=== PATIENT | female | born 1955 | race Caucasian/White ===

== ENCOUNTER → 2018-03-12 | Outpatient (CLI) | payer OTHER ==
--- NOTE | 2018-03-15 02:57 | MAM ---
EXAM DESCRIPTION: 3D Screening BILATERAL : Digital Mammography. CLINICAL HISTORY: 62 years Female SCREENING . No complaints. Remote family history of breast cancer. Postmenopausal. Has taken HRT more than 5 years ago.. COMPARISON: Baseline study at this facility.. No prior reports available. TECHNIQUE: Bilateral CC and MLO projection full-field images, 3-D tomosynthesis digital mammographic technique. Also bilateral synthesized CC/ MLO full-field images. CAD not utilized. FINDINGS: The breast parenchymal density pattern is: Heterogeneously dense breast tissue, which may obscure small masses. No skin thickening or nipple retraction bilateral vascular calcifications. Bilateral solitary microcalcifications. Focal asymmetry at the 1200 clock position of the posterior third of the left breast near the chest wall with minimal calcification. Elongated mass or architectural distortion at the 430 clock position of the right breast approximately 3 cm from the nipple. Not associated with calcifications. IMPRESSION: BI-RADS CATEGORY: 0 - INCOMPLETE- Need additional imaging evaluation. FOLLOW-UP: Recall for additional imaging: Bilateral 3-D tomosynthesis diagnostic full field LM images. Bilateral targeted breast ultrasound to follow if indicated by diagnostic images.. Written communication concerning the IMPRESSION and Follow-up, will be mailed to the patient and referring health care provider. Electronically signed by: Sahil Shi MD 03/14/2018 2:19 PM CDT
== END ==
LOC: MAMMO 07:48
PROVIDERS: ATTEND Family Medicine
DX: Z12.31 Encounter for screening mammogram for malignant neoplasm of breast (principal)

== ENCOUNTER → 2018-04-16 | Outpatient (CLI) | payer OTHER ==
--- NOTE | 2018-04-16 17:20 | US ---
EXAM DESCRIPTION: Breast,Left: Ultrasound CLINICAL HISTORY: 62 yearsFemaleABNORMAL MAMMO COMPARISON: Digital diagnostic 3-D tomosynthesis bilateral breasts on this visit. TECHNIQUE: Transcutaneous scanning of the left breast utilizing two-dimensional and Doppler modes. Scanning performed by the stockroom attendant and Dr. Shi. FINDINGS: Scanning of the 1100-100 clock position of the left breast from the chest wall to the nipple. Mostly fibroglandular echotexture. No distinct solid mass or cyst. No parenchymal edema or large calcifications. Normal Doppler vascularity. No unusual skin changes. IMPRESSION: 1. Bi-Rads Category 2: Benign. 2. Please refer to bilateral diagnostic 3-D tomosynthesis mammography examination and report on this visit. The FINDINGS and the FOLLOW-UP plan were reviewed in person with the patient after the examination. Written communication explaining the IMPRESSION and FOLLOW-UP will be mailed to the patient and referring care provider. Electronically signed by: Sahil Shi MD 04/16/2018 5:18 PM CDT
--- NOTE | 2018-04-16 17:20 | MAM ---
EXAM DESCRIPTION: 3D Diagnostic, Bilateral: Digital Mammography CLINICAL HISTORY: 62 yearsFemaleABNORMAL MAMMO . Focal asymmetry at the 1200 clock position of the posterior third of the left breast and lower inner quadrant of the anterior right breast.. COMPARISON: 3-D digital screening bilateral study 03/12/2018. 2-D digital screening bilateral study 09/21/2016 from outside imaging facility.. Targeted left breast ultrasound following this examination. Reports from prior examinations also reviewed. TECHNIQUE: Bilateral LM projection full-field images, 3-D tomosynthesis digital mammographic technique. CAD not utilized. FINDINGS: The breast parenchymal density pattern is: Heterogeneously dense breast tissue, which may obscure small masses. No skin thickening or nipple retraction . The focal asymmetry in the lower inner quadrant of the anterior third of the right breast is stable compared to the prior outside study. Today's LM tomosynthesis view shows minimal asymmetry. The focal asymmetry in density in the posterior third of the left breast at the 1200 clock position is again visualized on today's study along with vascular calcifications. There is a subtle change in the density compared to the prior outside study. Ultrasound: Scanning of the 1100-100 clock position of the left breast from the chest wall to the nipple. Mostly fibroglandular echotexture. No distinct solid mass or cyst. No parenchymal edema or large calcifications. Normal Doppler vascularity. No unusual skin changes. IMPRESSION: BI-RADS CATEGORY: 2 - BENIGN FINDINGS. FOLLOW UP: Return to routine digital bilateral screening, one year interval from February 2018. The FINDINGS and the FOLLOW-UP plan were reviewed in person with the patient after the examination. Written communication explaining the IMPRESSION and FOLLOW-UP will be mailed to the patient and referring care provider. According to the [employer], yearly mammograms are recommended starting at age 40 and continuing as long as a woman is in good health. Any breast change noted on a breast self-exam should be reported promptly to the patient's healthcare provider. Breast MRI is recommended for women with an approximately 20-25% or greater lifetime risk of breast cancer, including women with a strong family history of breast or ovarian cancer and women who have been treated for Hodgkin's disease. A negative mammographic report should not delay tissue diagnosis in patients with significant clinical history or physical findings. Extremely dense breast tissue limits the sensitivity of digital mammography. Electronically signed by: Sahil Shi MD 04/16/2018 5:19 PM CDT
== END ==
LOC: MAMMO 11:24
PROVIDERS: ATTEND Family Medicine
DX: R92.2 Inconclusive mammogram (principal)
CPT/HCPCS: 76641; 77066; G0279

== ENCOUNTER → 2018-11-04 | Outpatient (CLI) | payer OTHER | LOC: GMAE 16:42 | PROVIDERS: ATTEND Family Medicine | DX: M79.10 Myalgia, unspecified site (principal) ==

== ENCOUNTER → 2018-12-11 | Outpatient (CLI) | payer OTHER ==
--- NOTE | 2018-12-11 18:04 | US ---
EXAM DESCRIPTION: Soft Tissue,Extremity: ULTRASOUND. CLINICAL HISTORY: 63 years Female BICEP STRAIN COMPARISON: None Available. TECHNIQUE: Transcutaneous scanning: Olsen-scale and Doppler modes. FINDINGS: The long head biceps tendon is only partially seen in the bicipital groove. Minimal fluid is also seen in the groove. Most of the tendon is retracted to the musculotendinous junction with heterogeneous appearance of the tendon and edema in the musculotendinous junction. Fluid is visualized around the tendon and around the musculotendinous junction. The short head biceps tendon and muscle are seen medially and the short head biceps tendon is intact. IMPRESSION: 1. Complete tear of the long head biceps tendon in the region of the bicipital groove. Most of the tendon retracts distally to the musculotendinous junction with edema in the tendon and junction and surrounding fluid is also present short head biceps tendon is intact. MRI scan of the proximal biceps tendons and muscle bellies may be more sensitive to evaluate extent of tears. Electronically signed by: Sahil Shi MD 12/11/2018 6:[address] [facility]
== END ==
LOC: US 11:00
PROVIDERS: ATTEND Family Medicine
DX: S46.211A Strain of muscle, fascia and tendon of other parts of biceps, right arm, initial encounter (principal)

== ENCOUNTER → 2018-12-26 | Outpatient (CLI) | payer OTHER ==
--- NOTE | 2018-12-26 11:22 | RAD ---
Two-view right humerus Indication: PAIN IN RIGHT ARM Comparison: None. Impression: No acute fracture or malalignment of the right humerus. Soft tissues are intact without radiopaque foreign body. Electronically signed by: Karson Cummins MD 12/26/2018 11:19 AM [facility]
== END ==
LOC: RAD 08:17
PROVIDERS: ATTEND Orthopaedic Surgery
DX: M79.601 Pain in right arm (principal)

== ENCOUNTER → 2019-01-01 | Outpatient (CLI) | payer OTHER ==
--- NOTE | 2019-01-01 09:53 | MRI ---
Study: MRI of the Right Hip. Indication: BONE CYST Technique: Multiplanar, multi sequence MRI of the right hip was obtained without intravenous contrast. Comparison: Radiographs December 11, 2018. Findings: No acute fracture or osteonecrosis. Grade 3 chondral thinning throughout the majority of the right hip joint with subtle areas of grade 4 chondral loss change superiorly and posteriorly. Subchondral marrow change anterior superior acetabulum. There is loss of normal sphericity anterior superior margin of the femoral head neck junction. Underlying this site there is a multilobulated 21 mm subcortical cyst, likely related to impingement. High-grade tearing anterior superior right hip labrum. Small joint effusion. Small joint line osteophytes. High-grade tendinosis and partial-thickness tearing of the right gluteus medias tendon insertion with moderate right greater trochanter bursal edema. Less pronounced tendinosis and attenuation of the right gluteus minimus tendon. Tendinosis left gluteus minimus/medius tendon insertions and mild left greater bursal edema noted as well. High-grade tendinosis and attenuation bilateral hamstring tendon origins. Mild pubic symphysis osteoarthritis. Pronounced lower lumbar disc disease. 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 Associated labral tearing and a joint effusion noted. At least moderate left hip osteoarthritis. High-grade tendinosis and partial-thickness tearing right gluteus medius tendon insertion with less pronounced tendinosis and attenuation of the right gluteus minimus tendon. Additional findings as above. Electronically signed by: Karson Cummins MD 01/01/2019 9:50 AM [employer]
== END ==
LOC: MRI 06:52
PROVIDERS: ATTEND Orthopaedic Surgery
DX: M85.60 Other cyst of bone, unspecified site (principal); M16.0 Bilateral primary osteoarthritis of hip

== ENCOUNTER 2019-06-27 14:37 | Emergency (ER) | payer OTHER ==
--- NOTE | 2019-06-27 15:49 | ED.PDOC ---
History of Present Illness - General Chief Complaint: Neuro Symptoms/Deficits Time Seen by Provider: 06/27/19 15:43 Source: patient, RN notes reviewed, Vital Signs reviewed Exam Limitations: no limitations Additional Information: 63 YEAR OLD BROUGHT HERE FOR EVALUATION TRANSIENT CONFUSION THIS MORNING THAT LASTED FEW MIN SINCE THEN SHE HAS BEEN TOTAL Y NORMAL SHE HAS TAKEN [facility]CO FOR PAIN LISINOPRIL WITH [facility]Z BISTOLIC HAS NO HAD ANYTHING EAT SINCE 6 PM PREVIOUS EVENING SHE IS SP TOTAL RIGHT HIP 23 JUNE SHE HAS HISTORY OF SCIATICA ASTHMA AT THIS TIME SHE HAS NO COMPLAINTS NORMAL MENTAL STATUS NO SLURRED SPEECH NO NUMBNESS OF FACE OR EXTREMITIES ALERT ORIENTED SLIGHTLY HYPERTENSIVE NORMAL CRANIAL NERVES NORMAL SENSATION TO TOUGH NO FOCAL WEAKNESS NORMAL DTR NEG BABINSKI - History of Present Illness Severity: mild Improving Factors: nothing Worsening Factors: nothing Associated Symptoms: denies symptoms Allergies/Adverse Reactions: Allergies NO KNOWN ALLERGY Allergy (Unverified 02/24/13 07:40) Home Medications: Ambulatory Orders Gabapentin 300 mg PO TID 11/09/14 HYDROcodone 5MG/APAP 325MG [Kent 5/325] 1 tab PO PRN 11/09/14 Lisinopril & Hydrochlorothiazi [Lisinopril/Hctz 20-25 mg] 1 tab PO DAILY 11/09/14 Montelukast [Singulair] 10 mg PO DAILY 06/27/19 Nebivolol HCl [Bystolic] 5 mg PO DAILY 06/27/19 Promethazine Tab [Phenergan Tablet] 25 mg PO Q6HR PRN 06/27/19 Review of Systems - Review of Systems Constitutional: States: no symptoms reported EENTM: States: no symptoms reported Respiratory: States: no symptoms reported Cardiology: States: no symptoms reported Gastrointestinal/Abdominal: States: no symptoms reported Genitourinary: States: no symptoms reported Musculoskeletal: States: no symptoms reported Skin: States: no symptoms reported Neurological: States: see HPI Endocrine: States: no symptoms reported Hematologic/Lymphatic: States: no symptoms reported Past Medical History (General) - Patient Medical History Hx Stroke: No Hx Dementia: No Hx Congestive Heart Failure: No Hx Hypertension: Yes Hx Diabetes: No Surgical History: appendectomy, other - Vaccination History Hx Tetanus, Diphtheria Vaccination: Yes Hx Influenza Vaccination: No Hx Pneumococcal Vaccination: No Family Medical History - Family History Mother Living Status: Unknown Hx Family Hypertension: Yes Physical Exam - Physical Exam General Appearance: Alert, Comfortable Ears, Nose, Throat: hearing grossly normal, normal ENT inspection, normal pharynx Neck: non-tender, full range of motion, supple Cardiovascular/Chest: normal peripheral pulses, regular rate, rhythm, no edema, no gallop, no JVD, no murmur Rectal Exam: normal exam Back Exam: normal inspection, no CVA tenderness, no vertebral tenderness Skin Exam: normal color, warm/dry Departure - Departure Clinical Impression: Hypertension, Adverse drug effect Time of Disposition: 15:53 Disposition: Discharge to Home or Self Care Condition: Good Departure Forms: ED Discharge - Pt. Copy, Patient Portal Self Enrollment Diet: resume usual diet Referrals: ANAY SANCHEZ MD [Primary Care Provider] - 1-2 Weeks Home Medications: Ambulatory Orders Gabapentin 300 mg PO TID 11/09/14 HYDROcodone 5MG/APAP 325MG [Kent 5/325] 1 tab PO PRN 11/09/14 Lisinopril & Hydrochlorothiazi [Lisinopril/Hctz 20-25 mg] 1 tab PO DAILY 11/09/14 Montelukast [Singulair] 10 mg PO DAILY 06/27/19 Nebivolol HCl [Bystolic] 5 mg PO DAILY 06/27/19 Promethazine Tab [Phenergan Tablet] 25 mg PO Q6HR PRN 06/27/19 Additional Instructions: EAT BANANA TO AVOID HYPOKALEMIA
[2019-06-27 16:43] VITALS: BP 155/96; TEMP 99; O2SAT 97
== END 2019-06-27 16:42 | disposition home or self-care (01) ==
LOC: ER 14:37
DX: I10 Essential (primary) hypertension (principal); R41.0 Disorientation, unspecified; T50.905A Adverse effect of unspecified drugs, medicaments and biological substances, initial encounter; Z79.899 Other long term (current) drug therapy; J45.909 Unspecified asthma, uncomplicated

== ENCOUNTER → 2019-10-14 | Outpatient (CLI) | payer OTHER | END | disposition home or self-care (01) | LOC: GMAE 10:10 | PROVIDERS: ATTEND Family Medicine | DX: I10 Essential (primary) hypertension (principal) ==

== ENCOUNTER → 2019-10-15 | Outpatient (CLI) | payer OTHER ==
--- NOTE | 2019-10-15 20:07 | MRI ---
EXAM DESCRIPTION: Lumbar Spine w/o Contrast : Magnetic Resonance Imaging. CLINICAL HISTORY: LOW BACK PAIN COMPARISON: None. TECHNIQUE: Multiplanar, multiple standard sequences, non contrast MRI, lumbar spine. FINDINGS: L5-S1: The disc is well visualized on axial T2 series 501, image 3. Disc desiccation and advanced disc space loss with 2 mm retrolisthesis. Minimal anterior bulging. Posterior disc osteophyte bulge into the canal and bilateral foramina. Moderate canal narrowing. Posterior elements unremarkable. Moderate bilateral foraminal narrowing. L4-L5: Minimal disc desiccation with disc space maintained. Posterior left paramedian bulge against the thecal sac. Minimal facet arthrosis and thickening ligaments with mild to moderate canal narrowing. Bilateral moderate foraminal narrowing. L3-L4: Disc desiccation with anterior disc space loss anterior bulging and endplate ridging. Disc space loss also to the left of midline with disc spur complex encroaching on the left foramen and the left L3 nerve. Mild narrowing of the right foramen. Posterior broad-based disc bulge and bilateral facet arthrosis and ligament thickening, compressing the transverse thecal sac, with AP canal diameter 8 mm. L2-L3: Disc desiccation with anterior bulging and endplate ridging. Posterior narrowing. More narrowing to the right of midline. Posterior broad-based bulge into the left side of the canal and left foramen with narrowing of the left subarticular recess. Hypertrophic facet arthrosis and ligament thickening with AP canal diameter 9 mm. Disc bulge into the left foramen with moderate narrowing. Moderate narrowing of the right foramen with disc bulging into the base. L1-L2: Anterior narrowing and anterior disc bulge. Similar broad-based disc bulge 3 mm abutting the thecal sac. Minimal thickening of the posterior ligaments. Mild canal narrowing. Bilateral foramina are patent. T12-L1: Disc space maintained with normal signal in the disc. Posterior elements are unremarkable. Canal and foramina are patent. Conus terminates at this level. L2-L4 dextroscoliosis. Paravertebral soft tissues with minimal paraspinal muscle atrophy.. Distal cord normal signal and caliber. Otherwise normal marrow signal in the remaining vertebral bodies and the posterior elements. Vertebral bodies are not compressed at any level. IMPRESSION: 1. Multiple Levels of disc space narrowing and spondylosis. Multiple levels of hypertrophic facet arthrosis and ligament thickening. Also in the lateral or foraminal narrowing. 2. Advanced spondylosis on the left side of the L3-4 disc space with disc spur complex causing left foraminal stenosis and impingement of the left L3 nerve. Posterior disc osteophyte bulge into the canal with mild to moderate canal stenosis. 3. Posterior L2-3 disc bulge with spurs in the canal and into the left foramen with mild central canal stenosis. 4. Bilateral L5-S1 foraminal narrowing and canal narrowing secondary to disc spur complex bulging bilaterally and posteriorly. Electronically signed by: Sahil Shi MD 10/15/2019 8:06 PM [facility]
== END | disposition home or self-care (01) ==
LOC: MRI 08:00
PROVIDERS: ATTEND Family Medicine
DX: S83.206A Unspecified tear of unspecified meniscus, current injury, right knee, initial encounter (principal)

== ENCOUNTER → 2019-10-16 | Outpatient (CLI) | payer OTHER ==
--- NOTE | 2019-10-17 17:54 | MAM ---
EXAM DESCRIPTION: 3D Screening BILATERAL : Digital Mammography. CLINICAL HISTORY: 64 years Female ANNUAL SCREENING . No complaints or personal history of breast cancer. Remote family history of breast cancer. Menarche age 12. Childbirth unknown. Menopausal age 54. HRT 5 or more years ago.. Lifetime risk of developing breast cancer (Tyrer-Cuzick model)(%): 5.6. COMPARISON: Bilateral screening digital breast tomosynthesis 12 March 2018.. TECHNIQUE: Bilateral CC and MLO projection full-field images, digital tomosynthesis mammographic technique. Bilateral digital 2-D full-field MLO images. CAD not available for tomosynthesis or 2-D images. FINDINGS: The breast parenchymal density pattern is: Heterogeneously dense breast tissue, which may obscure small masses. No skin thickening or nipple retraction. Bilateral vascular calcifications. Bilateral solitary microcalcifications. No new focal, stellate mass or density, focal asymmetry , and no suspicious microcalcifications bilaterally. Stable mammograms compared to prior study. IMPRESSION: Benign exam. BIRAD CATEGORY: 2 BENIGN FINDINGS. RECOMMENDATIONS: FOLLOW UP: Routine digital bilateral mammographic screening, one year interval from September 2019. Written communication explaining the IMPRESSION and follow-up, will be mailed to the patient and referring health care provider. According to the [employer], yearly mammograms are recommended starting at age 40 and continuing as long as a woman is in good health. Any breast change noted on a breast self-exam should be reported promptly to the patient's healthcare provider. Breast MRI is recommended for women with an approximately 20-25% or greater lifetime risk of breast cancer, including women with a strong family history of breast or ovarian cancer and women who have been treated for Hodgkin's disease. A negative mammographic report should not delay tissue diagnosis in patients with significant clinical history or physical findings. Extremely dense breast tissue limits the sensitivity of digital mammography. Electronically signed by: Sahil Shi MD 10/17/2019 5:53 PM [employer]
== END ==
LOC: MAMMO 08:30
PROVIDERS: ATTEND Family Medicine
DX: Z12.31 Encounter for screening mammogram for malignant neoplasm of breast (principal)

== ENCOUNTER → 2020-12-15 | Outpatient (CLI) | payer OTHER | LOC: GMAE 11:02 | PROVIDERS: ATTEND Family Medicine | DX: I10 Essential (primary) hypertension (principal); Z79.899 Other long term (current) drug therapy ==

== ENCOUNTER 2021-01-09 09:57 | Emergency (ER) | payer OTHER ==
--- NOTE | 2021-01-09 10:07 | ED.PDOC ---
History of Present Illness - General Chief Complaint: Problem Stated Complaint: Painful urination Time Seen by Provider: 01/09/21 10:06 - History of Present Illness Initial Comments: Patient complains of dysuria urgency and frequency for the last 2 days. She complained of some mild pain in her right flank which is now resolved. No fever chills or nausea vomiting. Symptoms are similar to prior urinary tract infection. Timing/Duration: other - 2 days Severity: mild Improving Factors: nothing Worsening Factors: nothing Associated Symptoms: denies symptoms Allergies/Adverse Reactions: Allergies NO KNOWN ALLERGY Allergy (Unverified 02/24/13 07:40) Home Medications: Ambulatory Orders Gabapentin 300 mg PO TID 11/09/14 HYDROcodone 5MG/APAP 325MG [[place] 5/325] 1 tab PO PRN 11/09/14 Lisinopril & Hydrochlorothiazi [Lisinopril/Hctz 20-25 mg] 1 tab PO DAILY 11/09/14 Montelukast [Singulair] 10 mg PO DAILY 06/27/19 Nebivolol HCl [Bystolic] 5 mg PO DAILY 06/27/19 Promethazine Tab [Phenergan Tablet] 25 mg PO Q6HR PRN 06/27/19 Phenazopyridine HCl [Pyridium] 200 mg PO TID 3 Days #9 tab 01/09/21 Sulfamethoxazole-Trimethoprim [Sulfamethoxazole/Trimetho 800-160 mg] 1 tab PO BID 7 Days #14 tab 01/09/21 Review of Systems - Review of Systems Constitutional: States: no symptoms reported EENTM: States: no symptoms reported Respiratory: States: no symptoms reported Cardiology: States: no symptoms reported Gastrointestinal/Abdominal: States: no symptoms reported Genitourinary: States: see HPI Musculoskeletal: States: no symptoms reported Skin: States: no symptoms reported Neurological: States: no symptoms reported Endocrine: States: no symptoms reported Hematologic/Lymphatic: States: no symptoms reported Past Medical History (General) - Patient Medical History Hx Stroke: No Hx Dementia: No Hx Congestive Heart Failure: No Hx Hypertension: Yes Hx Diabetes: No - Vaccination History Hx Tetanus, Diphtheria Vaccination: Yes Hx Influenza Vaccination: No Hx Pneumococcal Vaccination: No Family Medical History - Family History Mother Living Status: Unknown Hx Family Hypertension: Yes Physical Exam - Physical Exam General Appearance: Alert, Comfortable Eye Exam: bilateral normal Ears, Nose, Throat: normal ENT inspection, normal pharynx Neck: non-tender, full range of motion Respiratory: normal breath sounds Cardiovascular/Chest: regular rate, rhythm Gastrointestinal/Abdominal: normal bowel sounds, non tender, soft Back Exam: normal inspection, no CVA tenderness Extremity: normal range of motion 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 01/09/21 13:18 Medical decision makin-year-old female with UTI uncomplicated lower tract infection. Patient is suitable for outpatient treatment. - Results/Orders Results/Orders: 01/09/21 10:19 URINE CULTURE W/COLONY COUNT Stat Laboratory Results - last 24 hr 01/09/21 10:19 Urine Color Yellow Urine Appearance Sl cloudy Urine pH 7.5 Ur Specific [place] 1.020 Urine Protein 100 H Urine Glucose (UA) Negative Urine Ketones Negative Urine Blood Moderate H Urine Nitrite Negative Urine Bilirubin Negative Urine Urobilinogen 0.2 Ur Leukocyte Esterase Small H Urine RBC Tntc H Urine WBC >50 H Ur Epithelial Cells 0-1 Urine Bacteria 2+ H Vital Signs - 24 hr 01/09/21 10:10 Temperature 98.5 F Pulse Rate [ 101 H left brachial] Respiratory 20 Rate Blood Pressure 188/102 [left brachial] O2 Sat by Pulse 97 Oximetry Departure - Departure Clinical Impression: Urinary tract infection Time of Disposition: 11:06 Disposition: Discharge to Home or Self Care Condition: Good Departure Forms: ED Discharge - Pt. Copy, Patient Portal Self Enrollment Diet: resume usual diet Referrals: ANAY SANCHEZ MD [Primary Care Provider] - 1-2 Weeks Prescriptions: Phenazopyridine HCl [Pyridium] 200 mg PO TID 3 Days #9 tab Sulfamethoxazole-Trimethoprim [Sulfamethoxazole/Trimetho 800-160 mg] 1 tab PO BID 7 Days #14 tab Home Medications: Ambulatory Orders Gabapentin 300 mg PO TID 11/09/14 HYDROcodone 5MG/APAP 325MG [Mancos 5/325] 1 tab PO PRN 11/09/14 Lisinopril & Hydrochlorothiazi [Lisinopril/Hctz 20-25 mg] 1 tab PO DAILY 11/09/14 Montelukast [Singulair] 10 mg PO DAILY 06/27/19 Nebivolol HCl [Bystolic] 5 mg PO DAILY 06/27/19 Promethazine Tab [Phenergan Tablet] 25 mg PO Q6HR PRN 06/27/19 Phenazopyridine HCl [Pyridium] 200 mg PO TID 3 Days #9 tab 01/09/21 Sulfamethoxazole-Trimethoprim [Sulfamethoxazole/Trimetho 800-160 mg] 1 tab PO BID 7 Days #14 tab 01/09/21 Comments: Take antibiotic until finished. If you develop a high fever, severe flank pain, or vomiting return to the emergency department.
[2021-01-09] MEDS ORDERED: PHENAZOPYRIDINE HCL 200 MG TAB PO ONE (10:58)
[2021-01-09] MEDS ORDERED: SULFA/TRIMETH 800/160 (DS) TAB 1 EA TAB PO ONE (10:58)
[2021-01-09 11:25] VITALS: BP 149/96; TEMP 98.1; O2SAT 99
== END 2021-01-09 11:14 | disposition home or self-care (01) ==
LOC: ER 09:57
DX: N39.0 Urinary tract infection, site not specified (principal); I10 Essential (primary) hypertension; Z79.899 Other long term (current) drug therapy